=== PATIENT | male | born 1955 | race Caucasian/White ===

== ENCOUNTER 2022-07-14 14:11 | Inpatient (IN) | payer MEDICARE, MEDICAID ==
[~2022-07-14] VITALS: Ht 182.9 cm; Wt 90.7 kg
--- NOTE | 2022-07-14 14:40 | NUR ---
[id number] FROM HOME C/O GENERALIZED WEAKNESS, UNABLE TO TOLERATE FOOD FLUIDS X 1 WEEK. PLACED IN BED, AAOX4, BREATHING EVEN AND UNLABORED SATURATING AT 88%RA, SATURATING AT 98% WITH 2LIT O2.
[2022-07-14] MEDS ORDERED: ONDANSETRON HCL/PF 4 MG/2 ML VIAL IVP ONE (15:00)
[2022-07-14] MEDS ORDERED: PANTOPRAZOLE 40 MG VIAL IV ONE (15:00)
[2022-07-14] MEDS ORDERED: IV NS 0.9% 1,000 ML BAG IV ONE (15:00)
[2022-07-14] MEDS ORDERED: PANTOPRAZOLE 40 MG VIAL ONE (15:05)
[2022-07-14] MEDS ORDERED: ONDANSETRON HCL/PF 4 MG/2 ML VIAL ONE ×2 (15:05→22:04)
--- NOTE | 2022-07-14 15:10 | NUR ---
EKG DONE AT BEDSIDE
--- NOTE | 2022-07-14 15:15 | NUR ---
BLOOD DRAWN AND SENT TO LAB
[2022-07-14 15:32] LABS: BASOPHILS % (AUTO) 0.6 % (0.0-2.0); EOSINOPHILS % (AUTO) 1.9 % (0.0-6.0); HEMATOCRIT 34 % (39-51); HEMOGLOBIN 10.9 g/dL (13.5-17.5); LYMPHOCYTES # (AUTO) 1.5 K/uL (0.8-4.8); LYMPHOCYTES % (AUTO) 20.1 % (20.0-44.0); MEAN CORPUSCULAR HGB CONC 32 g/dl (31.0-36.0); MEAN CORPUSCULAR VOLUME 92 fL (80-96); MONOCYTES # (AUTO) 0.7 K/uL (0.1-1.30); MONOCYTES % (AUTO) 8.6 % (2.0-12.0); NEUTROPHILS # (AUTO) 5.3 K/uL (1.8-8.9); NEUTROPHILS % (AUTO) 68.8 % (43.0-81.0); PLATELET COUNT (AUTO) 236 K/uL (150-450); RED BLOOD CELL COUNT(AUTO) 3.73 MIL/uL (4.5-6.0); WHITE BLOOD COUNT (AUTO) 7.7 K/uL (4.3-11.0)
[2022-07-14 16:03] LABS: ALBUMIN 2.9 g/dL (3.4-5.0); BILIRUBIN,DIRECT 0.1 mg/dL (0.0-0.2); BILIRUBIN,TOTAL 0.3 mg/dL (0.2-1.0); CALCIUM, SERUM 9.7 mg/dL (8.5-10.1); CREATININE 3.1 mg/dL (0.6-1.3); POTASSIUM 4.5 mmol/L (3.5-5.1); TOTAL PROTEIN, SERUM 7.4 g/dL (6.4-8.2)
--- NOTE | 2022-07-14 17:10 | NUR ---
Kadi berger in [facility] - 07/14/22 at 1746 by JOSE EDUARDO CRISIS TEAM AT BEDSIDE FOR EVAL.
--- NOTE | 2022-07-14 17:15 | NUR ---
SWAB FOR COVID19 SENT TO LAB
[2022-07-14 17:33] LABS: BILIRUBIN,URINE NEGATIVE (NEGATIVE); COLOR,URINE YELLOW (YELLOW); LEUKOCYTE ESTERASE ,URINE NEGATIVE (NEGATIVE); NITRITE, URINE NEGATIVE (NEGATIVE); PH,URINE 6.5 (5.0-8.0); PROTEIN,URINE 2+ mg/dl (NEGATIVE); UGLUCOSE NEGATIVE (NEGATIVE); UROBILINOGEN,URINE 0.2 EU/dL (0.2)
[2022-07-14] MEDS ORDERED: ROPI0.5T4 PO (17:46)
[2022-07-14] MEDS ORDERED: FLUO20CA42 PO (17:46)
[2022-07-14] MEDS ORDERED: OLAN20TA3 PO (17:46)
[2022-07-14] MEDS ORDERED: DIVA500T54 PO (17:46)
[2022-07-14] MEDS ORDERED: TAMS-12 PO (17:46)
[2022-07-14 17:48] LABS: BACTERIA,URINE None seen /HPF (None Seen); SQUAMOUS EPITHELIAL CELL,UR 0-2 /HPF (None Seen); WBC,URINE 0-2 /HPF (0-3)
--- NOTE | 2022-07-14 18:18 | NUR ---
MOVE SHEET SUBMITTED.
--- NOTE | 2022-07-14 18:37 | NUR ---
KATH [phone] REGAL Addendum: 07/14/22 at 1900 by ADÁN RADHA*
[2022-07-14] MEDS ORDERED: hydrALAZINE HCL IV 20 MG VIAL IV ONE ×2 (19:00→21:00)
[2022-07-14] MEDS ORDERED: hydrALAZINE HCL IV 20 MG VIAL ONE ×2 (19:01→20:47)
[2022-07-14] MEDS ORDERED: ONDANSETRON HCL/PF 4 MG/2 ML VIAL IV ONE (22:30)
--- NOTE | 2022-07-15 01:37 | NUR ---
DR SHAW ACCEPTED AT [facility] BUT WAITING FOR BED
[2022-07-15] MEDS ORDERED: ACETAMINOPHEN 325 MG TABLET PO ONE (02:00)
[2022-07-15] MEDS ORDERED: ACETAMINOPHEN 325 MG TABLET ONE (02:01)
[2022-07-15] MEDS ORDERED: ONDANSETRON HCL/PF 4 MG/2 ML VIAL ONE (02:10)
[2022-07-15] MEDS ORDERED: ONDANSETRON HCL/PF 4 MG/2 ML VIAL IV ONE (02:30)
--- NOTE | 2022-07-15 05:06 | NUR ---
SPOKE TO FLOYD [facility] [employer] AND REQUESTED AUTH TO ADMIT THE PT. SHE WILL ESCALATE THE REQUEST TO THEIR DR AND WILL RETURN MY CALL.
[2022-07-15] MEDS ORDERED: IV NS 0.9% 1,000 ML IV PRN (05:30)
--- NOTE | 2022-07-15 05:59 | NUR ---
RR EVEN AND NONLABORED ON R/A. ADLS DONE PT URINATED VIA URINAL. ALL NEEDS MET AT THIS TIME.
--- NOTE | 2022-07-15 06:48 | NUR ---
ENE RECORDING CLERK FOR [facility]AL AND REC'D AUTH TO KEEP THE PT HERE
--- NOTE | 2022-07-15 08:33 | NUR ---
GOT BED 324-1
--- NOTE | 2022-07-15 08:43 | NUR ---
REPORT GIVEN TO CK SHIN.
[2022-07-15] MEDS ORDERED: ACETAMINOPHEN 325 MG TABLET PO PRN (09:00)
[2022-07-15] MEDS ORDERED: CLONIDINE HCL 0.1 MG TABLET PO PRN (09:00)
[2022-07-15] MEDS ORDERED: ropiniROLE 0.5 MG TABLET PO SCH (09:00)
[2022-07-15] MEDS ORDERED: OLANZAPINE 10 MG TABLET PO SCH ×2 (10:00→22:00)
--- NOTE | 2022-07-15 10:00 | NUR ---
RN ADMITTING NOTES PATIENT ARRIVED ONTO UNIT VIA GURNEY, ACCOMPANIED BY ER STAFF, PATIENT IS A/OX4, ABLE TO MAKE NEEDS KNOWN. ON ROOM AIR, TOLERATING WELL, NO SIGNS OF RESPIRATORY DISTRESS NOTED. IV ACCESS LAC #20G SL, INTACT AND PATENT. PATIENT TRANSFERRED TO BED, V/S STABLE EXCEPT FOR BP WHICH IS 153/111, HOSPITALIST RON HENRY NOTIFIED. AWAITS RESPONSE. ORIENTED TO ROOM. KEPT COMFORTABLE. PATIENT REFUSED TO REMOVED PANTS AND REFUSED ASSESSING SKIN CONDITION. PATIENT SHOWS NO S/S OF PAIN OR DISCOMFORT. SAFETY MEASURES IN PLACE: BED LOCKED AND IN LOWEST POSITION, HOB ELEVATED, CALL LIGHT WITHIN REACH, SIDE RAILS UPx3. WILL CONTINUE TO MONITOR.
[2022-07-15] MEDS: IV 1/2NS 1000 ML 1,000 ML IV PRN (11:02)
[2022-07-15] MEDS: PANTOPRAZOLE 40 MG VIAL IV SCH (11:04)
[2022-07-15] MEDS: METOPROLOL TARTRATE 25 MG TABLET PO SCH ×2 (11:06→17:01)
[2022-07-15] MEDS: TAMSULOSIN 0.4 MG CAP.SR.24H PO SCH (11:06)
[2022-07-15] MEDS: FLUOXETINE HCL 20 MG CAPSULE PO SCH (11:06)
[2022-07-15] MEDS: HEPARIN SODIUM, PORCINE 5000 UNITS/1 ML VIAL SQ SCH ×2 (11:20→21:24)
[2022-07-15] MEDS: CEFTRIAXONE 1 G in IV D5W 50 ML IV SCH (11:22)
[2022-07-15] MEDS: METRONIDAZOLE 500MG/ NS 100ML 500 MG in PREMIX 1 EA IV SCH ×2 (11:29→18:01)
[2022-07-15 16:00] VITALS: BP 148/71
--- NOTE | 2022-07-15 18:25 | NUR ---
RN CLOSING NOTES PATIENT AWAKE A/OX4, ABLE TO MAKE NEEDS KNOWN. ON ROOM AIR, TOLERATING WELL, NO SIGNS OF RESPIRATORY DISTRESS NOTED. IV ACCESS LAC #20G SL, INTACT AND PATENT. ALL DUE MEDS GIVEN. NOTIFIED DR. ORTIZ OF BUN AND CREA RESULT. SAFETY MEASURES IN PLACE: BED LOCKED AND IN LOWEST POSITION, HOB ELEVATED, CALL LIGHT WITHIN REACH, SIDE RAILS UPx3. WILL ENDORSED TO INCOMING NURSE.
--- NOTE | 2022-07-15 19:36 | NUR ---
RN OPENING NOTE; RECEIVED PATIENT IN BED SLEEPING BUT EASY TO AROUSED,ANAMARIA WELL ON RM AIR SATTING 100%,[place]EL[place] SPEAKER . ABLE TO MAKE NEEDS KNOWN.NO SIGN SOB/DISTRESS NOTED,IV ACCESS ON THE LAC G # 20 INTACT AND PATENT,ALL SAFETY MEASURES IN PLACE. BED LOCKED IN THE LOWEST POSITION. CALL LIGHT AND TABLE IN EASY REACH.WILL CONTINUE TO MONITOR.
[2022-07-15] MEDS ORDERED: DIVALPROEX SODIUM 500 MG TABLET.DR PO SCH ×2 (22:00)
[2022-07-16] MEDS: METRONIDAZOLE 500MG/ NS 100ML 500 MG in PREMIX 1 EA IV SCH ×2 (03:26→11:11)
--- NOTE | 2022-07-16 06:32 | NUR ---
RN CLOSING NOTE; PATIENT IN BED SLEEPING BUT EASY TO AROUSED,ANAMARIA WELL ON RM AIR SATTING 99%,[place] SPEAKER WITH LITTLE [place], ABLE TO MAKE NEEDS KNOWN.NO SIGN SOB/DISTRESS NOTED,NO COMPLAINED OF PAIN/DISCOMFORT DURING SHIFT,DUE MEDS GIVEN ORDER,ALL NEEDS ATTENDED,IV ACCESS ON THE LAC G # 20 INTACT AND PATENT,SAFETY MEASURES IN PLACE. BED LOCKED IN THE LOWEST POSITION. CALL LIGHT AND TABLE IN EASY REACH.WILL ENDORSED TO NEXT SHIFT
[2022-07-16 06:41] LABS: ALBUMIN 2.4 g/dL (3.4-5.0); BILIRUBIN,TOTAL 0.2 mg/dL (0.2-1.0); CALCIUM, SERUM 9.1 mg/dL (8.5-10.1); CREATININE 3.3 mg/dL (0.6-1.3); POTASSIUM 4.1 mmol/L (3.5-5.1); TOTAL PROTEIN, SERUM 6.2 g/dL (6.4-8.2)
[2022-07-16 07:01] LABS: BASOPHILS % (AUTO) 0.8 % (0.0-2.0); EOSINOPHILS % (AUTO) 3.4 % (0.0-6.0); HEMATOCRIT 30 % (39-51); HEMOGLOBIN 9.8 g/dL (13.5-17.5); LYMPHOCYTES # (AUTO) 1.5 K/uL (0.8-4.8); LYMPHOCYTES % (AUTO) 27.8 % (20.0-44.0); MEAN CORPUSCULAR HGB CONC 33 g/dl (31.0-36.0); MEAN CORPUSCULAR VOLUME 92 fL (80-96); MONOCYTES # (AUTO) 0.6 K/uL (0.1-1.30); MONOCYTES % (AUTO) 11.1 % (2.0-12.0); NEUTROPHILS # (AUTO) 3.1 K/uL (1.8-8.9); NEUTROPHILS % (AUTO) 56.9 % (43.0-81.0); PLATELET COUNT (AUTO) 188 K/uL (150-450); RED BLOOD CELL COUNT(AUTO) 3.29 MIL/uL (4.5-6.0); WHITE BLOOD COUNT (AUTO) 5.4 K/uL (4.3-11.0)
--- NOTE | 2022-07-16 07:25 | NUR ---
MS RN OPENING NOTE RECEIVED PT IN BED AWAKE, A/O X 4. ON RA TOLERATING WELL WITHOUT SIGN OF ACUTE RESPIRATORY DISTRESS. ABLE TO MAKE NEEDS KNOWN. NO C/O PAIN/DISCOMFORT AT THIS TIME. IV ACCESS ON THE LAC 20G INTACT AND PATENT, NO SIGNS OF INFILTRATION NOTED, WITH ONGOING IV OF 1/2 NS AT 100ML/HR. SAFETY MEASURES IN PLACE: BED LOCKED IN THE LOWEST POSITION, CALL LIGHT AND TABLE IN EASY REACH, SIDE RAILS UP X 2. WILL CONTINUE TO MONITOR.
[2022-07-16 08:00] VITALS: BP 146/93
[2022-07-16] MEDS ORDERED: METO25TA3 PO (08:34)
[2022-07-16] MEDS ORDERED: AMLO5TAB4 PO (08:34)
[2022-07-16] MEDS: PANTOPRAZOLE 40 MG VIAL IV SCH (09:03)
[2022-07-16] MEDS: TAMSULOSIN 0.4 MG CAP.SR.24H PO SCH (09:04)
[2022-07-16] MEDS: HEPARIN SODIUM, PORCINE 5000 UNITS/1 ML VIAL SQ SCH (09:05)
[2022-07-16] MEDS: FLUOXETINE HCL 20 MG CAPSULE PO SCH (09:09)
[2022-07-16] MEDS: METOPROLOL TARTRATE 25 MG TABLET PO SCH ×2 (09:24→16:08)
[2022-07-16] MEDS ORDERED: AMLODIPINE BESYLATE 5 MG TABLET PO SCH (10:00)
[2022-07-16] MEDS: IV 1/2NS 1000 ML 1,000 ML IV PRN (11:09)
[2022-07-16] MEDS: CEFTRIAXONE 1 G in IV D5W 50 ML IV SCH (11:10)
--- NOTE | 2022-07-16 13:56 | NUR ---
RN NOTES BLOOD PRESSURE CHECKED JUST NOW AND WAS 132/70 MMHG, HR 81. WILL CONTINUE TO MONITOR.
[2022-07-16 14:00] VITALS: BP 132/70
[2022-07-16 16:00] VITALS: BP 144/93
[2022-07-16 16:45] VITALS: BP 138/78
--- NOTE | 2022-07-16 17:00 | NUR ---
RN NOTES BP MONITORED AND RECORDED, 2PM- 132/70 MMHG, 4PM- 144/93 MMHG. METOPROLOL 25MG SCHEDULED MED GIVEN @ 04:08PM. RECENT BP TAKEN 138/78 AT 04:45PM. DR. ORTIZ MADE AWARE AND OK TO D/C PT HOME.
--- NOTE | 2022-07-16 17:51 | NUR ---
RN NOTES PER BRUSH STAINER BALJINDER, SHE STATED THAT SHE WILL ARRANGE HOME HEALTH FOR PT TOMORROW. PT INFORMED AND HE SAID HE WILL KEEP HIS PHONE OPEN.
--- NOTE | 2022-07-16 17:57 | NUR ---
MS RN DISCHARGED NOTE PT DISCHARGED HOME IN STABLE CONDITION. A/O X 4. ABLE TO MAKE NEEDS KNOWN. BP IS CONTROLLED AND DR ORTIZ MADE AWARE. ON ROOM AIR, TOLERATING WELL, NO SOB NOTED. MONITORED V/S ACCORDINGLY AND STABLE. NO SKIN ISSUES NOTED. ALL BELONGINGS ACCOUNTED FOR AND PT SIGNED BELONGINGS LIST. IV ACCESS ON THE LAC #20G REMOVED WITH NO ACTIVE BLEEDING NOTED, DRY DRESSING APPLIED AT SITE. HEALTH TEACHINGS/DISCHARGED INSTRUCTIONS GIVEN TO PT AND VERBALIZED UNDERSTANDING. EXIT FOLDER, NEW PRESCRIBED MEDICATIONS/RX HANDED AND EXPLAINED TO PT, VERBALIZED UNDERSTANDING. PT LEFT UNIT @ 1755 VIA W/C, ACCOMPANIED BY KIP SIMON TO A WAITING TAXI IN FRONT OF [employer]. MD AND CHARGE NURSE AWARE OF DISCHARGE.
[2022-07-17] MEDS ORDERED: PANTOPRAZOLE 40 MG/PACK PACK PO SCH (07:30)
== END 2022-07-16 17:45 | disposition home health service (06) | DRG 391 ==
LOC: ER 14:12 → TELE 07-15 08:43 → MED 07-15 09:56
PROVIDERS: ADMIT Internal Medicine; ATTEND Internal Medicine
DX: A09 Infectious gastroenteritis and colitis, unspecified (principal); N17.0 Acute kidney failure with tubular necrosis; E86.0 Dehydration; Z20.822 Contact with and (suspected) exposure to COVID-19; G40.909 Epilepsy, unspecified, not intractable, without status epilepticus; F31.9 Bipolar disorder, unspecified; Z79.899 Other long term (current) drug therapy; Z87.891 Personal history of nicotine dependence; D72.829 Elevated white blood cell count, unspecified; N18.9 Chronic kidney disease, unspecified; I12.9 Hypertensive chronic kidney disease with stage 1 through stage 4 chronic kidney disease, or unspecified chronic kidney disease; N40.0 Benign prostatic hyperplasia without lower urinary tract symptoms; K57.30 Diverticulosis of large intestine without perforation or abscess without bleeding; R25.1 Tremor, unspecified; Z87.898 Personal history of other specified conditions; F43.9 Reaction to severe stress, unspecified
CPT/HCPCS: 36415; 71045-TC; 76770-TC; 80048-TC; 80053-TC; 80076-TC; 81001; 82550-TC; 82962-TC; 83690-TC; 85025-TC; 87081-TC; A4216; C9113; C9803; G0378; J0360; J0696; J1644; J2405; J3490; J7040; J7060